=== PATIENT | male | born 1995 | race Caucasian/White ===

== ENCOUNTER 2017-01-16 18:59 | Emergency (ER) | payer OTHER ==
[~2017-01-16] VITALS: Ht 165.1 cm; Wt 80.6 kg
[2017-01-16 19:01] VITALS: TEMP 36.9; Ht 165.1 cm; Wt 80.6 kg
[2017-01-16] MEDS ORDERED: HYDROCODONE/ACETAMOPHEN 5/325MG TAB PO ONE (19:30)
[2017-01-16] MEDS ORDERED: HYDR-5688 PO (19:55)
[2017-01-16] MEDS ORDERED: CYCL10TA6 PO (19:55)
--- NOTE | 2017-01-16 19:56 | EMERGENCY ROOM VISIT NOTE ---
ED Visit Note First contact with patient: 19:07 Chief Complaint: Neck Pain History of Present Illness: Patient is a 22-year-old male who presents to the emergency Department this evening with his mother for evaluation of his neck pain. He reports that 2 days ago he started with symptoms of pain which seemed to radiate down his entire spine. He to mild headache at that point as well. Since then, his pain is isolated to the posterior surface of his neck. He reports pain with range of motion. He denies any numbness or tingling into the distal tremor use. He denies any falls or recent trauma to the neck. The patient reports a long-standing history of neck pain issues. His mother is present and contributes reporting that he has had neck stiffness since he was a child. He is tried nothing [id number] for his symptoms. He rates his current discomfort as an 8/10. He denies any current headaches, dizziness, light headedness, blurry vision, double vision, fevers, chills, recent upper respiratory infections, nausea, or vomiting. Medications: No current medications. Allergies: No known allergies. PMH: No pertinent past medical history. SHx: Patient is a 22-year-old male who lives locally. ROS: All pertinent positive and negative review of systems are appropriately documented in the History of Present Illness. Physical Exam: VITAL SIGNS - Vital signs and nursing notes were reviewed. GENERAL - 22-year-old male appearing his stated age who is in no acute distress. Communicates well with provider and answers questions appropriately. HEAD - Normocephalic, Atraumatic. No Yanez's Sign or Raccoon's Eyes. No depressed skull fractures palpable. EYES - PERRL with EOMI bilaterally. Sclera anicteric. Palpebral conjunctiva pink and moist with no injection noted. EARS - No deformities of external structures noted on gross examination bilaterally. No pain elicited with palpation of the tragus bilaterally. External auditory canals without discharge or otorrhea. Tympanic membranes pearly dotson without retraction or bulging. NOSE - Midline and without cyanosis. No epistaxis or purulent drainage noted. Septum midline without deviation or septal hematoma noted. MOUTH/OROPHARYNX - Without perioral cyanosis. Buccal mucosa pink and moist and without leukoplakia. Tongue midline with equal elevation of palate bilaterally. No tonsillar hypertrophy, erythema, or exudates noted. NECK - Neck with limited ROM secondary to patient discomfort. No cervical spinous process tenderness to palpation. Modecate paraspinal muscle tenderness to palpation bilaterally. No lymphadenopathy noted. Mild pain through range of motion appreciated. No pain elicited with axial load applied to the head. EXTREMITIES - +5/5 strength appreciated bilaterally of the upper extremities. +3 /5 radial pulses palpated throughout. FROM with no tremors, fasciculations, or clonus noted on PROM throughout. NEUROLOGIC - Cranial nerves II through XII grossly intact. Sensory intact to light and sharp touch throughout. Patient able to perform rapid alternating movements appropriately. PSYCH - A&Ox3 and cooperates fully with examiner. Pt is very pleasant and interacts well with examiner. ED Course: Patient was seen and evaluated by myself. I did review the patient's prior records. The patient had a CT the head as well as neck for similar symptoms in the past few years. He did not follow-up with his primary care provider at that time. He reports that his symptoms completely resolved without need for intervention. I did have a lengthy conversation with the patient and mother regarding symptomatically management. He was provided one Edmore while in the emergency department. The patient was placed on Edmore as well as Flexeril for home. He was encouraged to follow-up with his primary care provider for his ongoing symptoms of neck discomfort. The patient was educated on worrisome symptoms for return visit to the emergency department. Patient discharged home in good condition. In the evaluation and treatment of this patient, the following differential diagnoses were considered: Musculoskeletal Strain, Discitis, Cervical Spine Fracture, Cervical Spine Dislocation, Cervical Spine Subluxation, Cervical Spondylosis, Fibromyalgia, Osteoarthritis, Polymyalgia Rheumatica, Psychogenic Pain Disorder, Tumor of Soft Tissue or Spine. Given the patient's presentation and stated complaints, I did elect to perform the above-mentioned workup. The patient presents today with pain to the neck which is worse with range of motion. He is had no fevers. There is been no recent upper respiratory infections. His exam is otherwise unremarkable. He has paraspinal tenderness to palpation. He is tried nothing [id number] for symptoms. He had negative cervical spine image studies performed within the past 2 years. I do not feel that repeat imaging studies are necessary at this point. He'll be treated conservatively with pain medication as well as Flexeril for home. He'll follow-up with his primary care provider for ongoing management. He will return for any changing/worsening symptoms. Patient discharged home in good condition. Impression: Neck Pain - Musculoskeletal Discharge Instructions: You have been treated in the Emergency Department for Neck Pain. You have received pain medicine in the emergency department which impairs your ability to operate a vehicle. It is illegal for you to drive after receiving these medicines. You have been prescribed Edmore one to 2 tabs every 4-6 hours as needed for pain. This is a narcotic medication. You cannot drive or consume alcohol while on this medicine. This medicine should only be used for pain that cannot be controlled with yxit-ejm-[id number] pain medicines. You have been prescribed Flexeril (cyclobenzaprine) 1-2 tabs orally, three times per day. Do NOT exceed 30 mg (6 tabs) per day. Take your first dose at bedtime as it can make you drowsy. Always take all medications as prescribed. For pain control, you can use the following skfl-xrm-kdfkqcm medicines (if >12 yo): - Regular strength (325mg/tab) Tylenol (acetaminophen) 2 tabs every 4-6 hours as needed. Do not exceed 12 tablets in a 24 hour period. Avoid taking more than 4 grams (4000 mg) of Tylenol per day. This includes any other sources of acetaminophen you may take on a regular basis. - Regular strength (200 mg/tab) Advil (ibuprofen) 1-2 tabs every 4-6 hours as needed. Do not exceed a dose of 3200 mg per day. If this is an acute injury, ice can be applied to the area of pain for the first 3 days to help decrease pain and inflammation. After the first 3 days, a heating pad can be used over the area for continued soothing relief. You should schedule a follow-up appointment in 2-3 days with your Primary Care Provider for further evaluation and treatment of your neck pain. Return to the Emergency Department if your current symptoms worsen despite treatment course outlined above, or if you develop any of the following symptoms : intractable pain despite aforementioned treatment course, facial droop, slurred speech, unilateral weakness, or worsening of her current symptoms. Problem List Medical Problems: (1) Whooping cough Status: Resolved Surgical Problems: (1) History of appendectomy Status: Resolved Current/Historical Medications Scheduled Cyclobenzaprine Hcl (Flexeril), 10 MG PO TID Scheduled PRN Hydrocodone/Acetaminophen 5MG/325MG (Edmore 5MG/325MG), 1-2 TABLET PO Q4H PRN for Pain Allergies Coded Allergies: No Known Allergies (Unverified , 10/11/15) Vital Signs Date Time Temp Pulse Resp B/P Pulse Ox O2 Delivery O2 Flow Rate FiO2 01/16/17 20:03 88 18 124/77 98 01/16/17 19:01 36.9 92 18 136/82 98 Room Air Medications Administered Medications (Trade) Dose Ordered Sig/Dillon Route Start Time Stop Time Status Last Admin Dose Admin Acetaminophen/ Hydrocodone Bitart (Edmore 5/325 Tab) 1 tab NOW ONCE PO 01/16/17 19:30 01/16/17 19:31 DC 01/16/17 19:25 1 TAB Departure Information Impression Primary Impression: Neck pain, musculoskeletal Dispostion Home / Self-Care Condition GOOD Prescriptions Cyclobenzaprine Hcl (FLEXERIL) 10 Mg Tab 10 MG PO TID for 5 Days, #15 TAB Prov: Mehrdad Cortes PA-C 01/16/17 Hydrocodone/Acetaminophen 5MG/325MG (Edmore 5MG/325MG) Tab 1-2 TABLET PO Q4H Y for Pain, #16 TAB For Initial Treatment Prov: Mehrdad Cortes PA-C 01/16/17 Referrals Percy Amezcua M.D. (MEDICAL) (PCP) Patient Instructions ED Neck Back Pain General, [facility] Additional Instructions You have been treated in the Emergency Department for Neck Pain. You have received pain medicine in the emergency department which impairs your ability to operate a vehicle. It is illegal for you to drive after receiving these medicines. You have been prescribed Edmore one to 2 tabs every 4-6 hours as needed for pain. This is a narcotic medication. You cannot drive or consume alcohol while on this medicine. This medicine should only be used for pain that cannot be controlled with nqzg-kna-jsvulez pain medicines. You have been prescribed Flexeril (cyclobenzaprine) 1-2 tabs orally, three times per day. Do NOT exceed 30 mg (6 tabs) per day. Take your first dose at bedtime as it can make you drowsy. Always take all medications as prescribed. For pain control, you can use the following vhtf-vaq-bhhjldo medicines (if >12 yo): - Regular strength (325mg/tab) Tylenol (acetaminophen) 2 tabs every 4-6 hours as needed. Do not exceed 12 tablets in a 24 hour period. Avoid taking more than 4 grams (4000 mg) of Tylenol per day. This includes any other sources of acetaminophen you may take on a regular basis. - Regular strength (200 mg/tab) Advil (ibuprofen) 1-2 tabs every 4-6 hours as needed. Do not exceed a dose of 3200 mg per day. If this is an acute injury, ice can be applied to the area of pain for the first 3 days to help decrease pain and inflammation. After the first 3 days, a heating pad can be used over the area for continued soothing relief. You should schedule a follow-up appointment in 2-3 days with your Primary Care Provider for further evaluation and treatment of your neck pain. Return to the Emergency Department if your current symptoms worsen despite treatment course outlined above, or if you develop any of the following symptoms : intractable pain despite aforementioned treatment course, facial droop, slurred speech, unilateral weakness, or worsening of her current symptoms.
[2017-01-16 20:03] VITALS: BP 124/77; PULSE 88; O2SAT 98
== END 2017-01-16 20:04 | disposition home or self-care (01) ==
LOC: C.EDB 19:00 → C.EDD 20:04
DX: M54.2 Cervicalgia (principal)

== ENCOUNTER 2017-12-24 17:37 | Emergency (ER) | payer OTHER ==
[~2017-12-24] VITALS: Ht 167.6 cm; Wt 69.9 kg
[2017-12-24 17:54] VITALS: TEMP 36.9; Ht 167.6 cm; Wt 69.9 kg
--- NOTE | 2017-12-24 18:51 | EMERGENCY ROOM VISIT NOTE ---
History Report prepared by Bharath: Frank Funes Under the Supervision of: Damaso EnriqueO. First contact with patient: 18:09 Chief Complaint: KIDNEY STONE Stated Complaint: KIDNEY STONE History of Present Illness The patient is a 22 year old male who presents to the Emergency Room with complaints of worsening waxing and waning crandall pain starting yesterday. The patient states that the pain is a cramping pain, and he states that the pain is worse with laying down and moving his midsection, and he has has pain with urination. The patient states that the pain is located more in the back, though it occasionally radiates into his back. He notes that he is light headed from the pain. The patient states that he has a history of kidney stones, and his mother also has kidney stones. He states that he has not been able to have any bowel movements recently, and his urine has been normal. The patient denies any nausea and vomiting. He denies any smoking, alcohol use, and drug use. He has a history of an appendectomy. Patient denies any recent trauma or injury. Denies any paresthesias. No change in bowel or bladder function, no saddle anesthesia. Patient states prior kidney stone was 1 mm and he passed that spontaneously. Patient did not follow-up with urology. Patient states he does drink soda daily. Patient denies any swelling or discharge in his genital region. No recent fevers or chills. No recent cough or cold symptoms. Source of History: patient Onset: yesterday Position: back Quality: cramping Timing: worsening Modifying Factors (Worsening): other (laying down and moving his midsection) Associated Symptoms: + abdominal pain, No nausea, No vomiting Note: Associated symptoms: Pain with urination Review of Systems See HPI for pertinent positives & negatives. A total of 10 systems reviewed and were otherwise negative. Past Medical & Surgical Medical Problems: (1) Whooping cough Surgical Problems: (1) History of appendectomy Family History Diabetes mellitus FH: heart disease FH: lung disease FHx: cancer Hypertension Kidney disease Kidney stones Seizures Social History Smoking Status: Current Every Day Smoker Alcohol Use: none Drug Use: none Marital Status: single Housing Status: lives with family Occupation Status: unemployed, student Current/Historical Medications No Active Prescriptions or Reported Meds Allergies Coded Allergies: No Known Allergies (Unverified , 12/24/17) Physical Exam Vital Signs Date Time Temp Pulse Resp B/P (MAP) Pulse Ox O2 Delivery O2 Flow Rate FiO2 12/24/17 21:59 93 109/76 97 Room Air 12/24/17 20:55 82 18 110/66 96 Room Air 12/24/17 17:54 36.9 93 18 123/86 96 Room Air Physical Exam GENERAL: alert, well appearing, well nourished, no distress, non-toxic EYE EXAM: normal conjunctiva, PERRL and EOM's grossly intact OROPHARYNX: no exudate, no erythema, lips, buccal mucosa, and tongue normal and mucous membranes are moist NECK: supple, no nuchal rigidity, no adenopathy, non-tender LUNGS: Clear to auscultation. Normal chest wall mechanics, no w/r/r HEART: no murmurs, S1 normal and S2 normal ABDOMEN: abdomen soft, non-tender, normo-active bowel sounds, no masses, no rebound or guarding. BACK: Back is symmetrical on inspection and there is no deformity, no midline tenderness, no CVA tenderness. SKIN: no rashes and no bruising UPPER EXTREMITIES: upper extremities are grossly normal. FROM, nml pulses. LOWER EXTREMITIES: No pitting edema. FROM, nml pulses. NEURO EXAM: Normal sensorium, cranial nerves II-XII grossly intact, normal speech, no gross weakness of arms, no gross weakness of legs. Gross sensation intact. Pt ambulating around the room with a steady gait. Medical Decision & Procedures ER Provider Diagnostic Interpretation: (RENAL)RETROPERITON COMP HISTORY: 22 years-old Male back pain, hx stones acute back pain with history of kidney stones COMPARISON: KUB 12/24/2017, CT 10/11/2015 TECHNIQUE: Multiple real-time sonographic images of the kidneys and urinary bladder were obtained assessing grayscale appearance and color flow FINDINGS: The right kidney measures 10.4 cm in length and is unremarkable without renal calculi, hydronephrosis or focal mass lesion. Cortical thickness and cortical medullary differentiation are within normal limits. The left kidney measures 10.5 in length and is also unremarkable without renal calculi, hydronephrosis or focal mass lesion. Cortical thickness and cortical medullary differentiation are within normal limits. Urinary bladder is decompressed with ureteral jets not identified. IMPRESSION: 1. Unremarkable sonographic appearance of the bilateral kidneys without renal calculi or hydronephrosis. 2. Decompressed urinary bladder. The above report was generated using voice recognition software. It may contain grammatical, syntax or spelling errors. Electronically signed by: Allen White M.D. 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 There is no organomegaly. No renal calculi. No ureteral calculi. No pneumoperitoneum or pneumatosis. No fracture. IMPRESSION: No renal or ureteral calculi identified. Electronically signed by: Allen White M.D. 12/24/2017 7:24 PM Dictated Date/Time: 12/24/2017 7:23 PM Laboratory Results 12/24/17 18:45 Red Blood Count 5.50, Mean Corpuscular Volume 89.8, Mean Corpuscular Hemoglobin 31.5, Mean Corpuscular Hemoglobin Concent 35.0, Mean Platelet Volume 9.0, Neutrophils (%) (Auto) 61.7, Lymphocytes (%) (Auto) 30.5, Monocytes (%) (Auto) 6.7, Eosinophils (%) (Auto) 0.5, Basophils (%) (Auto) 0.2, Neutrophils # (Auto) 6.03, Lymphocytes # (Auto) 2.99, Monocytes # (Auto) 0.66, Eosinophils # (Auto) 0.05, Basophils # (Auto) 0.02 12/24/17 18:45 Test 12/24/17 18:45 12/24/17 20:35 White Blood Count 9.79 K/uL (4.8-10.8) Red Blood Count 5.50 M/uL (4.7-6.1) Hemoglobin 17.3 g/dL (14.0-18.0) Hematocrit 49.4 % (42-52) Mean Corpuscular Volume 89.8 fL (80-100) Mean Corpuscular Hemoglobin 31.5 pg (25-34) Mean Corpuscular Hemoglobin Concent 35.0 g/dl (32-36) Platelet Count 300 K/uL (130-400) Mean Platelet Volume 9.0 fL (7.4-10.4) Neutrophils (%) (Auto) 61.7 % Lymphocytes (%) (Auto) 30.5 % Monocytes (%) (Auto) 6.7 % Eosinophils (%) (Auto) 0.5 % Basophils (%) (Auto) 0.2 % Neutrophils # (Auto) 6.03 K/uL (1.4-6.5) Lymphocytes # (Auto) 2.99 K/uL (1.2-3.4) Monocytes # (Auto) 0.66 K/uL (0.11-0.59) Eosinophils # (Auto) 0.05 K/uL (0-0.5) Basophils # (Auto) 0.02 K/uL (0-0.2) RDW Standard Deviation 42.0 fL (36.4-46.3) RDW Coefficient of Variation 12.8 % (11.5-14.5) Immature Granulocyte % (Auto) 0.4 % Immature Granulocyte # (Auto) 0.04 K/uL (0.00-0.02) Anion Gap 8.0 mmol/L (3-11) Est Creatinine Clear Calc Drug Dose 80.3 ml/min Estimated GFR () 90.0 Estimated GFR (Non- 77.6 BUN/Creatinine Ratio 8.4 (10-20) Calcium Level 9.1 mg/dl (8.5-10.1) Urine Color YELLOW Urine Appearance CLEAR (CLEAR) Urine pH 6.5 (4.5-7.5) Urine Specific [place] 1.028 (1.000-1.030) Urine Protein NEG (NEG) Urine Glucose (UA) NEG (NEG) Urine Ketones TRACE (NEG) Urine Occult Blood NEG (NEG) Urine Nitrite NEG (NEG) Urine Bilirubin NEG (NEG) Urine Urobilinogen NEG (NEG) Urine Leukocyte Esterase NEG (NEG) Medications Administered Medications (Trade) Dose Ordered Sig/Dillon Route Start Time Stop Time Status Last Admin Dose Admin Ketorolac Tromethamine (Toradol Inj) 30 mg NOW STAT IV 12/24/17 20:49 12/24/17 20:51 DC 12/24/17 20:56 30 MG Tamsulosin HCl (Flomax Cap) 0.4 mg NOW ONCE PO 12/24/17 21:30 12/24/17 21:31 DC 12/24/17 21:58 0.4 MG Acetaminophen (Tylenol Tab) 1,000 mg NOW STAT PO 12/24/17 21:30 12/24/17 21:31 DC 12/24/17 21:58 1,000 MG ED Course 2129: Patient updated of all results. States minimal improvement with pain following Toradol. Discussed with patient increased water and decreased ingestion of soda/coffee/tea. Discuss close follow-up with family doctor as a precaution. Discussed symptoms to watch and return for. Medical Decision Differential diagnosis: Etiologies such as renal colic, appendicitis, diverticulitis, mesenteric ischemia, aortic pathology, infections, inflammatory bowel disease, PUD, biliary pathology, UTI, as well as others were entertained. Patient well-appearing here despite complaints. Labs, UA, and imaging reassuring. Patient denies any recent trauma or injury no other findings to suggest other acute spinal injury or occult trauma. Patient states again that this feels like prior episode of kidney stone. Given patient's age and reassuring labs and imaging did not feel patient warranted CT at this time. Discussed with patient adequate hydration, pain control at home, symptoms to watch and return for, and that if his pain persisted possible evaluation with CAT scan may be warranted. Medication Reconcilliation Current Medication List: was personally reviewed by me Blood Pressure Screening Patient's blood pressure: Normal blood pressure Impression Primary Impression: Left flank pain Scribe Attestation The scribe's documentation has been prepared under my direction and personally reviewed by me in its entirety. I confirm that the note above accurately reflects all work, treatment, procedures, and medical decision making performed by me. Departure Information Dispostion Home / Self-Care Prescriptions No Active Prescriptions or Reported Meds Referrals No Doctor, Assigned (PCP) Patient Instructions My [facility] Additional Instructions Please drink plenty of water, use Tylenol and ibuprofen as needed for pain. Please avoid coffee, soda, ice tea. Please call follow-up with your family doctor if your pain persists as you may need additional outpatient referral or testing. If her pain becomes markedly worse, you develop fevers or chills, vomiting, or unable to urinate, noticed blood in your urine, develop trouble having a bowel movement, you have any other new concerns, please return the emergency room.
[2017-12-24 18:58] LABS: BASO % 0.2 %; BASO ABS # 0.02 K/uL (0-0.2); EOS % 0.5 %; EOS ABS # 0.05 K/uL (0-0.5); HEMATOCRIT 49.4 % (42-52); HEMOGLOBIN 17.3 g/dL (14.0-18.0); IG# 0.04 K/uL (0.00-0.02); LYMPH % 30.5 %; LYMPH ABS # 2.99 K/uL (1.2-3.4); MEAN CELL VOLUME 89.8 fL (80-100); MEAN CORPUSCULAR HEMOGLOBIN 31.5 pg (25-34); MONO % 6.7 %; MONO ABS # 0.66 K/uL (0.11-0.59); NEUT % 61.7 %; NEUT ABS # 6.03 K/uL (1.4-6.5); PLATELET COUNT 300 K/uL (130-400); RED CELL DISTRIBUTION WIDTH CV 12.8 % (11.5-14.5); WHITE BLOOD COUNT 9.79 K/uL (4.8-10.8)
[2017-12-24 19:23] LABS: CALCIUM 9.1 mg/dl (8.5-10.1); CREATININE 1.29 mg/dl (0.60-1.40); POTASSIUM 4.2 mmol/L (3.5-5.1)
--- NOTE | 2017-12-24 19:25 | DIAGNOSTIC IMAGING REPORT ---
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 There is no organomegaly. No renal calculi. No ureteral calculi. No pneumoperitoneum or pneumatosis. No fracture. IMPRESSION: No renal or ureteral calculi identified. Electronically signed by: Allen White M.D. 12/24/2017 7:24 PM Dictated Date/Time: 12/24/2017 7:23 PM
[2017-12-24] MEDS ORDERED: KETOROLAC TROMETHAMINE 30 MG/ML VIAL IV STA (20:49)
--- NOTE | 2017-12-24 21:13 | DIAGNOSTIC IMAGING REPORT ---
(RENAL)RETROPERITON COMP HISTORY: 22 years-old Male back pain, hx stones acute back pain with history of kidney stones COMPARISON: KUB 12/24/2017, CT 10/11/2015 TECHNIQUE: Multiple real-time sonographic images of the kidneys and urinary bladder were obtained assessing grayscale appearance and color flow FINDINGS: The right kidney measures 10.4 cm in length and is unremarkable without renal calculi, hydronephrosis or focal mass lesion. Cortical thickness and cortical medullary differentiation are within normal limits. The left kidney measures 10.5 in length and is also unremarkable without renal calculi, hydronephrosis or focal mass lesion. Cortical thickness and cortical medullary differentiation are within normal limits. Urinary bladder is decompressed with ureteral jets not identified. IMPRESSION: 1. Unremarkable sonographic appearance of the bilateral kidneys without renal calculi or hydronephrosis. 2. Decompressed urinary bladder. The above report was generated using voice recognition software. It may contain grammatical, syntax or spelling errors. Electronically signed by: Allen White M.D. 12/24/2017 9:12 PM Dictated Date/Time: 12/24/2017 9:10 PM
[2017-12-24] MEDS ORDERED: ACETAMINOPHEN 500 MG TAB PO STA (21:30)
[2017-12-24] MEDS ORDERED: TAMSULOSIN HCL 0.4 MG CAP PO ONE (21:30)
[2017-12-24 21:59] VITALS: BP 109/76; PULSE 93; O2SAT 97
== END 2017-12-24 22:00 | disposition home or self-care (01) ==
LOC: C.EDB 17:39 → C.EDA 22:00
DX: R10.9 Unspecified abdominal pain (principal); F17.200 Nicotine dependence, unspecified, uncomplicated; Z87.442 Personal history of urinary calculi; Z90.89 Acquired absence of other organs; Z83.3 Family history of diabetes mellitus; Z82.49 Family history of ischemic heart disease and other diseases of the circulatory system; Z82.0 Family history of epilepsy and other diseases of the nervous system